=== PATIENT | male | born 1975 | race Caucasian/White ===

== ENCOUNTER 2023-03-02 11:08 | Emergency (ER) | payer OTHER ==
[~2023-03-02] VITALS: Ht 182.9 cm; Wt 120.8 kg
[2023-03-02 14:13] LABS: BASO # 0.1 10^3/uL (0.0-0.2); BASO % 0.6 % (0.0-1.0); EOS # 0.2 10^3/uL (0.0-0.5); EOS % 1.9 % (0.0-3.0); HEMATOCRIT 46.1 % (42.0-52.0); HEMOGLOBIN 15.3 g/dl (13.5-17.5); LYMPH # 1.7 10^3/uL (1.5-5.0); LYMPH % 22.3 % (24.0-44.0); MEAN CORPUSCULAR HEMOGLOBIN 29.1 pg (27.0-33.0); MEAN CORPUSCULAR HGB CONC 33.2 g/dl (32.0-36.5); MEAN CORPUSCULAR VOLUME 87.6 fl (80.0-96.0); MONO # 0.6 10^3/uL (0.0-0.8); MONO % 8.2 % (2.0-8.0); NEUTROPHILS # 5.2 10^3/uL (1.5-8.5); NEUTROPHILS % 66.7 % (36.0-66.0); RED BLOOD COUNT 5.26 10^6/uL (4.30-6.10); WHITE BLOOD COUNT 7.8 10^3/uL (4.0-10.0)
[2023-03-02 15:17] VITALS: BP 139/82; TEMP 98.2; O2SAT 98
[2023-03-02 15:57] LABS: HEMOGLOBIN A1c 11.5 % (4.0-6.0)
[2023-03-02] MEDS ORDERED: METF10004 PO (16:13)
== END 2023-03-02 16:33 | disposition home or self-care (01) ==
LOC: M ED 11:08
DX: R20.2 Paresthesia of skin (principal); E11.9 Type 2 diabetes mellitus without complications; Z79.4 Long term (current) use of insulin